=== PATIENT | female | born 1990 | race Asian ===

== ENCOUNTER 2022-02-28 11:40 | Emergency (ER) | payer OTHER ==
[~2022-02-28] VITALS: Ht 165.1 cm; Wt 59.1 kg
[2022-02-28 11:40] VITALS: BP 126/94
--- NOTE | 2022-02-28 11:50 | NUR ---
PT AMB TO ER BED 1
--- NOTE | 2022-02-28 12:00 | NUR ---
PT PRESENTS TO ED FOR EVAL OF PALPITATIONS X1 MONTH, WORSE X2 DAYS. PT STS SHE FEELS PALPITATIONS MOSTLY AT NIGHT WHEN LAYING DOWN. PT REPORTS INTERMITTENT PERIODS OF FEELING "LIKE MY HEART IS SQUEEZING", RATES CHEST PAIN 2/10 AT THIS TIME. RESP EVEN/UNLABORED, PT APPEARS IN NO ACUTE DISTRESS AT THIS TIME. VITALS STABLE, PT PLACED ON CARE PROFESSIONAL AND CONTINUOUS PULSE OX. PT AAOX4, GCS 15, SKIN W/D/I, NO EDEMA NOTED.
[2022-02-28 13:00] LABS: BASOPHILS % (AUTO) 0.6 % (0.0-2.0); EOSINOPHILS % (AUTO) 0.4 % (0.0-4.0); HEMATOCRIT 39.2 % (36-48); HEMOGLOBIN 12.6 g/dL (12.0-16.0); LYMPHOCYTES # (AUTO) 1.9 K/uL (2.5-16.5); LYMPHOCYTES % (AUTO) 24.9 % (20.5-51.1); MEAN CORPUSCULAR HEMOGLOBIN 23 pg (27-31); MEAN CORPUSCULAR HGB CONC 32 g/dL (33-37); MONOCYTES # (AUTO) 0.3 K/uL (0.8-1.0); NEUTROPHILS # (AUTO) 5.2 K/uL (1.8-7.7); NEUTROPHILS % (AUTO) 70.1 % (42.2-75.2); PLATELET COUNT (AUTO) 283 K/uL (140-450); RED BLOOD CELL COUNT(AUTO) 5.44 MIL/uL (4.20-5.40); RED CELL DISTRIBUTION WIDTH 14.2 % (11.6-13.7); WHITE BLOOD COUNT (AUTO) 7.5 K/uL (4.8-10.8)
[2022-02-28 13:06] LABS: ALBUMIN 3.9 g/dL (3.4-5.0); ANION GAP 15.6 (8-16); CARBON DIOXIDE 24.2 mmol/L (21-32); CREATININE 0.6 mg/dL (0.6-1.3); POTASSIUM 3.8 mmol/L (3.5-5.1); TOTAL BILIRUBIN 0.4 mg/dL (0.0-1.0)
[2022-02-28] MEDS ORDERED: LEVO0.0511 PO (14:22)
[2022-02-28 14:45] VITALS: BP 122/84
== END 2022-02-28 14:49 | disposition home or self-care (01) ==
LOC: MED 11:40
DX: E03.9 Hypothyroidism, unspecified (principal); E06.3 Autoimmune thyroiditis; R00.2 Palpitations; Z90.49 Acquired absence of other specified parts of digestive tract
CPT/HCPCS: 36415; 71045; 80053; 81002; 81025; 83880; 84443; 84484; 85025; 85379; 93005; 99285; Q0092